=== PATIENT | female | born 1995 | race Caucasian/White ===

== ENCOUNTER 2025-01-31 17:14 | Emergency (ER) | payer SELFPAY | END 2025-01-31 18:47 | disposition home or self-care (01) | LOC: MW.ED 17:14 | DX: S60.051A Contusion of right little finger without damage to nail, initial encounter (principal); Z88.5 Allergy status to narcotic agent; W20.8XXA Other cause of strike by thrown, projected or falling object, initial encounter; Y93.89 Activity, other specified | CPT/HCPCS: 73140-26-F1; 73140-F1; 99282; 99283 ==